=== PATIENT | male | born 1950 | race Caucasian/White ===

== ENCOUNTER 2018-06-20 09:36 | Emergency (ER) | payer MEDICARE, BC ==
[2018-06-20] MEDS ORDERED: Ibuprofen 600 MG TAB ONE (09:58)
--- NOTE | 2018-06-20 10:18 | RAD ---
THREE VIEWS LEFT SHOULDER: COMPARISON: None. HISTORY: Slipped and fell yesterday with left shoulder and rib pain. FINDINGS: Three views left shoulder show no evidence of acute fracture or dislocation. No degenerative changes are seen. IMPRESSION: Unremarkable exam. POS: [facility]
--- NOTE | 2018-06-20 10:19 | RAD ---
SINGLE VIEW OF THE CHEST AND LEFT RIB SERIES: HISTORY: Slipped and fell yesterday with left chest/rib pain. FINDINGS: Three views of the left ribs and an anterior view of the chest show a normal size cardiomediastinal s ilhouette. There is no evidence of consolidation, mass, or pleural effusion. No displaced rib fracture is seen. No underlying pleural thickening or pneumothorax are seen. IMPRESSION: 1. No evidence of displaced left rib fracture. 2. No evidence of acute cardiopulmonary disease. POS: [facility]
== END 2018-06-20 10:23 | disposition home or self-care (01) ==
LOC: SCSER 09:36
DX: S40.012A Contusion of left shoulder, initial encounter (principal); S20.212A Contusion of left front wall of thorax, initial encounter; I10 Essential (primary) hypertension; Z79.899 Other long term (current) drug therapy; W01.0XXA Fall on same level from slipping, tripping and stumbling without subsequent striking against object, initial encounter; Y92.009 Unspecified place in unspecified non-institutional (private) residence as the place of occurrence of the external cause